=== PATIENT | male | born 1985 | race Caucasian/White ===

== ENCOUNTER 2020-11-27 11:41 | Emergency (ER) | payer OTHER ==
[~2020-11-27] VITALS: Ht 188 cm; Wt 96.2 kg
[~2020-11-27 11:41] MED LIST: CRUTCH USE; CYCL10 PO; FAMO20 PO; HYDACE5 PO; IBUP600 PO; NAPR500 PO; PRED20 PO; TRAM50 PO
[2020-11-27] MEDS ORDERED: Amoxicillin500 MG PO (12:47)
== END 2020-11-27 12:50 | disposition home or self-care (01) ==
LOC: ER 11:41
DX: K04.7 Periapical abscess without sinus (principal); Z88.2 Allergy status to sulfonamides; Z79.899 Other long term (current) drug therapy
CPT/HCPCS: 99282

== ENCOUNTER 2021-08-14 19:30 | Emergency (ER) | payer OTHER ==
[~2021-08-14] VITALS: Ht 193 cm; Wt 106.6 kg
[~2021-08-14 19:30] MED LIST changes: +Amoxicillin500 MG PO
[2021-08-14] MEDS ORDERED: Cleocin HCl300 MG PO (20:12)
== END 2021-08-14 20:31 | disposition home or self-care (01) ==
LOC: ER 19:30
DX: L02.413 Cutaneous abscess of right upper limb (principal); L03.113 Cellulitis of right upper limb; F15.10 Other stimulant abuse, uncomplicated; F17.210 Nicotine dependence, cigarettes, uncomplicated; Z88.2 Allergy status to sulfonamides
CPT/HCPCS: 10060; 90471; 90714; 99283-25; A9270